=== PATIENT | male | born 1995 | race Caucasian/White ===

== ENCOUNTER 2018-02-15 13:16 | Emergency (ER) | payer MEDICAID, SELFPAY ==
[~2018-02-15] VITALS: Ht 170.2 cm; Wt 69.0 kg
[2018-02-15] MEDS ORDERED: DICYCLOMINE 20 MG TABLET PO ONE (14:00)
[2018-02-15] MEDS ORDERED: DICYCLOMINE 20 MG TABLET ONE (14:08)
[2018-02-15 14:20] LABS: BASOPHILS # (AUTO) 0.04 x10^3/uL (0-0.1); BASOPHILS % (AUTO) 1 % (0-1); EOSINOPHILS # (AUTO) 0.02 x10^3/uL (0-0.4); EOSINOPHILS % (AUTO) 0 % (1-7); LYMPHOCYTES # (AUTO) 1.93 x10^3/uL (1-3.4); LYMPHOCYTES % (AUTO) 26 % (22-44); MD NO; MEAN CORPUSCULAR HEMOGLOBIN 33.1 pg (27.5-34.5); MEAN CORPUSCULAR HGB CONC 34.3 g/dL (33.2-36.2); MEAN CORPUSCULAR VOLUME 96.5 fL (81-97); MEAN PLATELET VOLUME 7.6 fL (7.4-10.4); MONOCYTES % (AUTO) 8 % (2-9); NEUTROPHILS # (AUTO) 4.97 x10^3/uL (1.8-6.8); NEUTROPHILS % (AUTO) 66 % (42-75); PLATELET COUNT 388 x10^3/uL (130-400); RED BLOOD COUNT 4.78 x10^6/uL (4.38-5.82); RED CELL DISTRIBUTION WIDTH 13.5 % (9.4-14.8)
[2018-02-15 14:29] LABS: ALANINE AMINOTRANSFERASE 30 U/L (12-78); ALBUMIN 4.2 g/dL (3.4-5.0); ANION GAP 8 mmol/L (5-15); CALCIUM 8.8 mg/dL (8.5-10.1); CHLORIDE 106 mmol/L (98-107); CREATININE 0.96 mg/dL (0.7-1.3)
[2018-02-15 14:31] LABS: ALKALINE PHOSPHATASE 77 U/L (45-117); BILIRUBIN,TOTAL 0.6 mg/dL (0.2-1.0); TOTAL PROTEIN 7.6 g/dL (6.4-8.2)
[2018-02-15 15:10] VITALS: BP 114/54
== END 2018-02-15 15:22 | disposition home or self-care (01) ==
LOC: ED 15:05
DX: R19.7 Diarrhea, unspecified (principal)
CPT/HCPCS: 36415; 80053; 85025; 99284

== ENCOUNTER 2021-04-28 13:04 | Emergency (ER) | payer OTHER ==
[~2021-04-28] VITALS: Ht 167.6 cm; Wt 73.0 kg
--- NOTE | 2021-04-28 13:14 | NUR ---
EMS TX: IBUPROFEN 600MG PO. PT REFUSED NARCOTIC, AT THAT TIME. PT ACCOMPANIED TO ED BY MOM. PT C/O SUDDEN LOW BACK PAIN AFTER LIFTING SON TODAY. FELT BACK TWINGE EARLIER IN THE DAY WHILE LIFTING HEAVY FRAME. DENIES HX BACK PROBLEMS. REPORTS PAIN RADIATING DOWN LT LEG W/ MOVEMENT.
[2021-04-28] MEDS ORDERED: DEXAMETHASONE 4 MG/ML, 1ML PO ONE (14:00)
[2021-04-28] MEDS ORDERED: METHOCARBAMOL 750 MG TABLET PO ONE (14:00)
[2021-04-28] MEDS ORDERED: ACETAMINOPHEN 500 MG TABLET PO ONE (14:00)
--- NOTE | 2021-04-28 14:50 | NUR ---
REPORT FROM RANJEET RODRIGUEZ
[2021-04-28] MEDS ORDERED: KETOROLAC 30 MG/1 ML IM ONE (15:00)
[2021-04-28] MEDS ORDERED: HYDROmorphone 1 MG/ML, 1ML INJ IM PRN (15:00)
[2021-04-28] MEDS ORDERED: DEXAMETHASONE 4 MG/ML, 1ML ONE (15:14)
[2021-04-28] MEDS ORDERED: METHOCARBAMOL 750 MG TABLET ONE (15:14)
[2021-04-28] MEDS ORDERED: ACETAMINOPHEN 500 MG TABLET ONE (15:15)
[2021-04-28] MEDS ORDERED: KETOROLAC 30 MG/1 ML ONE (15:15)
[2021-04-28] MEDS ORDERED: HYDROmorphone 1 MG/ML, 1ML INJ ONE (16:28)
--- NOTE | 2021-04-28 16:57 | NUR ---
PT REPORTS FEELING "A LOT BETTER" AFTER IM DILUADID. WANTS TO TRY SITTING IN WHEELCHAIR
[2021-04-28 17:32] VITALS: BP 92/57
== END 2021-04-28 17:34 | disposition home or self-care (01) ==
LOC: ED 14:42
DX: S39.012A Strain of muscle, fascia and tendon of lower back, initial encounter (principal); F17.200 Nicotine dependence, unspecified, uncomplicated; X50.0XXA Overexertion from strenuous movement or load, initial encounter; Y93.89 Activity, other specified; Y92.89 Other specified places as the place of occurrence of the external cause; Y99.8 Other external cause status
CPT/HCPCS: 96372; 99284; J1100; J1170; J1885

== ENCOUNTER 2021-05-03 13:59 | Emergency (ER) | payer OTHER ==
[~2021-05-03] VITALS: Ht 167.6 cm; Wt 81.6 kg
--- NOTE | 2021-05-03 14:25 | NUR ---
NO ANSWER FROM [facility] X1
--- NOTE | 2021-05-03 14:34 | NUR ---
NO ANSWER FROM [facility] X2
[2021-05-03 14:49] VITALS: BP 120/80
--- NOTE | 2021-05-03 16:42 | NUR ---
Patient given discharge instructions and they have confirmed that they understand the instructions. Patient ambulatory with steady gait.
== END 2021-05-03 16:44 | disposition home or self-care (01) ==
LOC: ED 16:35
DX: S39.012A Strain of muscle, fascia and tendon of lower back, initial encounter (principal); X50.0XXA Overexertion from strenuous movement or load, initial encounter; Y93.89 Activity, other specified; Y92.69 Other specified industrial and construction area as the place of occurrence of the external cause; Y99.0 Civilian activity done for income or pay
CPT/HCPCS: 72110; 99283